=== PATIENT | female | born 1950 | race Caucasian/White ===

== ENCOUNTER 2024-12-01 06:01 | Day surgery (SDC) | payer MEDICARE, SELFPAY ==
[2024-12-01] VITALS (8 sets, daily range): BP systolic 110–142; BP diastolic 73–109; PULSE 61–79; RESP 16; TEMP 36.3–36.4; O2SAT 90–98; BMI 33.8
--- OUTSIDE RECORDS SUMMARY | 2024-12-01 06:06 | XMS_ITS | Clinical Summary ---
Author Organization [facility] Address [place], [place] [address] Care Team Providers Care Engineering Equipment Operator Name Role Phone Xiomy Gaitan MD Primary Care Provide r Allergies No known active allergies Medications latanoprost (XALATAN) 0.005 % ophthalmic solution Place 1 Drop into right eye once daily in the evening. 3 Active losartan (COZAAR) 50 mg tabletIndications:H TN (hypertension) Take 1 Tablet (50 mg) by mouth once daily. 90 Tablet 3 4 Active hydroCHLOROthiazide 25 mg tabletIndications:H TN (hypertension) Take 1 Tablet (25 mg) by mouth once daily. 90 Tablet 3 4 Active atorvastatin (LIPITOR) 10 mg tabletIndications:H yperlipidemia, unspecified hyperlipidemia type Take 1 Tablet (10 mg) by mouth at bedtime. 90 Tablet 3 4 Active Active Problems Problem Noted Date Diagnosed Date Polyp of colon 04/24/2022 Age-related cataract of both eyes 12/09/2020 Hyperlipidemia 08/28/2015 HTN (hypertension) 01/25/2012 Vitamin D deficiency 01/25/2012 Resolved Problems Problem Noted Date Diagnosed Date Resolved Date Controlled type 2 diabetes m ellitus without complication, without long-term current use of insulin 01/25/2018 12/09/2020 Encounters Date Type Department Care Team Description 11/29/2024 Travel 11/26/2024 Travel 11/25/2024 2:40 PM AIR HOSE COUPLER Office Visit [facility] [address] [place] [address] Xiomy Gaitan MD Pre-Op Exam (Bunionectomy right foot, Dr. Ritchie 12/01/24) 11/25/2024 Travel 11/22/2024 Travel 10/31/2024 Telephone [facility] [address] [place] [address] Cerscencio Ritchie, DPM Surgery Scheduled 09/19/2024 10:40 AM AIR HOSE COUPLER Ancillary Procedure [facility] [address] [facility] [address] [place] [address] 09/18/2024 Travel from Last 3 Months Immunizations Name Administration Dates Next Due COVID-19 VACCINE SPIKEVAX (M ODERNA 50MCG/0.5ML) 12YO+ PFS 07/09/2023 COVID-19 vaccine (Moderna 10 0mcg/0.5mL) PF, MDV 11/19/2020 Influenza, Inactivated AIIV4 (Age 65+ Years) Preserv Free 07/09/2023,07/21/2022,08/25/2021 Influenza, Inactivated IIV3 (Age 65+ Years) Preserv Free 08/08/2024 Pneumococcal Conj 20-valent (Prevnar 20) 023 Tdap 06/26/2014 Zoster (Shingrix-RZV, recombinant) 09/15/2024, Family History Medical History Relation Name Comments Cancer Brother 3 Liver Heart Disease Father Mid -50s Cancer-breast No Family History Cancer-ovarian No Family History Relation Name Status Comments Brother 1 Alec Alive Brother 2 Arturo Alive Brother 3 Daughter Amie Alive Father (Age 88) Mother Jada Cruz Alive Sister Pooja Alive Son Alec Alive Social History Tobacco Use Types Packs/Day Years Used Date Smoking Tobacco: Never Passive Smoke Exposure: Never Smokeless Tobacco: Never Tobacco Cessation:Counseling Given: Not Answered Alcohol Use Standard Drinks/Week Comments Yes 3 (1 standard drink = 0.6 oz pur e alcohol) PHQ-2 Answer Date Recorded PHQ-2 TOTAL SCORE 0 06/10/2024 Social Connections Answer Date Recorded Do you often feel lonely or isolated from those around you? 0 06/09/2024 Financial Resource Strain Answer Date R ecorded Difficulty of Paying Living Expenses 3 06/09/2024 Difficulty of Paying Living Expenses Not on file 06/09/2024 Food Insecurity Answer Date Recorded Do you worry your food will run out before you are able to buy more? 1 06/09/2024 Transportation Needs Answer Date Record ed Does lack of transportation keep you from medica l appointments? 1 06/09/2024 Does lack of transportation keep you from work, meetings or getting things that you need? 1 06/09/2024 Housing Stability Answer Date Recorded What is your housing situation today? 1 06/09/2024 Utilities Answer Date Recorded Do you have trouble paying f or utilities (for example, heat, electricity, water, phone)? 1 06/09/2024 Comments No Sex and Gender Information Value Date Recorded Sex Assigned at Not on file Legal Sex Female 6:09 AM AIR HOSE COUPLER Gender Identity Not on file Sexual Orientation Not on file Occupation Industry Job Start Date Job End Date Not on file Not on file Not on file Not on file Travel History Travel Start Travel [place] 11/12/2024 11/21/2024 Obstetrics History Para Term AB IAB SAB Ectopic Multiple Livin g Live Births 2 2 2 2 Date Outcome GA Total Labor Labor/2nd/3rd Weight Sex Type Anes PTL Zamzam A1 A5 Name Clin Term Term Last Filed Vital Signs Vital Sign Reading Time Taken Comments Blood Pressure 122/82 11/25/2024 3:18 PM AIR HOSE COUPLER Pulse 82 11/25/2024 3:18 PM AIR HOSE COUPLER Temperature 36.8 C (98.3 F) 08/21/2023 2:43 PM AIR HOSE COUPLER Respiratory Rate 18 08/21/2023 2:43 PM AIR HOSE COUPLER Oxygen Saturation 96% 11/25/2024 3:13 PM AIR HOSE COUPLER Inhaled Oxygen Concentration - - Weight 83.5 kg (184 lb) 11/25/2024 3:13 PM AIR HOSE COUPLER Height 157.5 cm (5' 2) 06/10/2024 9:18 AM CDT Body Mass Index 33.65 06/10/2024 9:18 AM CDT Plan of Treatment Upcoming Encounters Date Type Department Care Team (Late st Contact Info) Description 12/01/2024 9:00 AM AIR HOSE COUPLER Office Visit [facility] [address] [place] [address] Crescencio Ritchie DPM [address] [place] [address] 12/03/2024 10:45 AM AIR HOSE COUPLER Office Visit [facility] [address] [place] [address] Crescencio Ritchie DPM [address] [place] [address] 12/16/2024 1:30 PM AIR HOSE COUPLER Office Visit [facility] [address] [place] [address] Crescencio Ritchie DPM [address] [place] [address] 01/13/2025 2:30 PM CDT Office Visit [facility] [address] [place] [address] Crescencio Ritchie DPM [address] [place] [address] Health Maintenance Due Date Last Done Comments RSV vaccine for adults or (1 - Risk 60-74 years 1-dose series) 2011 Tetanus booster 06/26/2024 06/26/2014 BMI (ht and wt on same day) for age 18+ 06/10/2025 06/10/2024, 08/21/2023, 03/20/2023, Additional history exists Depression screening for age 12+ 06/10/2025 06/10/2024, 03/22/2023, 03/20/2023, Additional history exists Medicare Wellness for age 65+ 06/11/2025, 03/20/2023, 01/19/2022, Additional history exists Mammogram for age 45-75 09/19/2025 09/19/20 24, 08/17/2022, 07/21/2021, Additional history exists Lipids for age 45-75 06/10/2029 06/10/2024, 03/20/2023, 01/19/2022, Additional history exists Colonoscopy through age 75 04/24/2032 04/24/2022 Tdap Completed 06/26/2014 Hepatitis C screening for ag e 18-79 Completed 04/26/2020 DEXA/DXA scan for age 65+ Completed 02/09/2022 Pneumococcal series for age 50+ Completed COVID-19 vaccine series Completed 08/08/20, 07/09/2023, 07/21/2022, Additional history exists Influenza for age 65+ Completed 08/08/2024 , 07/09/2023, 07/21/2022, Additional history exists Zoster (shingles) series for age 50+ Completed 09/15/2024, 05/30/2024 Procedures Procedure Name Priority Date/Time Associated Diagnosis Comments BASIC METABOLIC PANEL Routine 11/25/2024 4:14 PM AIR HOSE COUPLER HTN (hypertension) CBC WITH AUTO DIFFERENTIAL Routine 11/25/2024 4:14 PM AIR HOSE COUPLER Preoperative examination XR MAMMO FACUNDO BILAT SCREEN Routine 09/19/2024 10:50 AM AIR HOSE COUPLER Visit for screening mammogram LIPID PANEL W REFLEX MEASURED LDL Routine 06/10/2024 10:15 AM CDT Hyperlipidemia, unspecified hyperlipidemia type SCAN-COLONOSCOPY 04/24/2022 10:0 0 AM CDT XR DXA BONE DENSITY 2 SITES AXIAL Routine 02/09/2022 1:44 PM CDT Menopause ANTI HCV Routine 04/26/2020 9:07 AM CDT Encounter for hepatitis C screening test for low risk patient from Last 3 Months or Most Recently Relevant to Health Maintenance Results * (ABNORMAL) CBC AND DIFFERENTIAL (11/25/2024 4:14 PM AIR HOSE COUPLER) WHITE BLOOD CELL COUNT 10.8 3.8 - 10.8 Thousand/u L [facility] RED BLOOD CELL COUNT 5.05 3.80 - 5.10 Million/uL [facility] HEMOGLOBIN 15.1 11.7 - 15.5 g/dL [facility] HEMATOCRIT 45.6(H) 35.0 - 45.0 % [facility] MCV 90.3 80.0 - 100.0 fL [facility] MCH 29.9 27.0 - 33.0 pg [facility] MCHC 33.1 32.0 - 36.0 g/dL [facility] Comment: For adults, a slight decrease in the calculated MCHC value (in the range of 30 to 32 g/dL) is most likely not clinically significant; however, it should be interpreted with caution in correlation with other red cell parameters and the patient's clinical condition. RDW 14.0 11.0 - 15.0 % [facility] PLATELET COUNT 380 140 - 400 Thousand/u L [facility] MPV 9.8 7.5 - 12.5 fL [facility] ABSOLUTE NEUTROPHILS 4,547 1,500 - 7,800 cells/uL [facility] ABSOLUTE LYMPHOCYTES 4,741(H) 850 - 3,900 cells/uL [facility] ABSOLUTE MONOCYTES 778 200 - 950 cells/uL [facility] ABSOLUTE EOSINOPHILS 594(H) 15 - 500 cells/uL [facility] ABSOLUTE BASOPHILS 140 0 - 200 cells/uL [facility] NEUTROPHILS 42.1 % [facility] LYMPHOCYTES 43.9 % [facility] MONOCYTES 7.2 % [facility] EOSINOPHILS 5.5 % [facility] BASOPHILS 1.3 % [facility] Blood BLOOD SPECIMEN / Unknown 11/25/2024 4:14 PM AIR HOSE COUPLER 11/25/2024 4:14 PM AIR HOSE COUPLER us Xiomy Gaitan MD HEMATOLOGY Final Result Performing Organization Address City/[facility]/ZIP Co de Phone Number [employer] [facility] [address] [place] [address], [place] [phone] [facility] [address] [place] [place] [address] * (ABNORMAL) BASIC METABOLIC PANEL (11/25/2024 4:14 PM AIR HOSE COUPLER) GLUCOSE 92 65 - 99 mg/dL [facility] Comment: Fasting reference interval UREA NITROGEN (BUN) 17 7 - 25 mg/dL [facility] CREATININE 0.83 0.60 - 1.00 mg/dL [facility] EGFR 74 > OR = 60 mL/min/1. 73m2 [facility] BUN/CREATININE RATIO SEE NOTE: 6 - 22 (calc) [facility] Comment: Not Reported: BUN and Creatinine are within reference range. SODIUM 139 135 - 146 mmol/L [facility] POTASSIUM 4.1 3.5 - 5.3 mmol/L [facility] CHLORIDE 102 98 - 110 mmol/L [facility] CARBON DIOXIDE 31 20 - 32 mmol/L [facility] ELECTROLYTE BALANCE 6(L) 7 - 17 mmol/L (calc) [facility] CALCIUM 10.5(H) 8.6 - 10.4 mg/dL [facility] Blood BLOOD SPECIMEN / Unknown 11/25/2024 4:14 PM AIR HOSE COUPLER 11/25/2024 4:14 PM AIR HOSE COUPLER Xiomy Gaitan MD CHEMISTRY Final Result Performing Organization Address City/[facility]/ZIP Co de Phone Number [employer] [facility] [address] [facility] [place] [address], [place] [phone] [facility] [address] [place] [address] * XR MAMMO FACUNDO BILAT SCREEN (09/19/2024 10:50 AM AIR HOSE COUPLER) Anatomical Region Laterality Modality BREASTS, Breast Left, Breast Right Bilateral Mammography Impressions 09/19/2024 1:03 PM AIR HOSE COUPLER There is no radiographic evidence for malignancy. Recommend annual mammograms. MAMMOGRAM ASSESSMENT: ACR 1 Negative PATIENTS: You will also receive a letter with your examination results in an easy to read format. If you have questions about your results, please contact your referring provider. Narrative 09/19/2024 1:03 PM AIR HOSE COUPLER For Patients: As a result of the Century Cures Act, medical imaging exams and procedure reports are released immediately into your electronic medical record. You may view this report before your referring provider. If you have questions, please contact your health care provider. XR MAMMO FACUNDO BILAT SCREEN [[id number]] CLINICAL HISTORY: This is an asymptomatic 73 y.o. patient. INDICATION FOR EXAM: Mammogram Screening. TECHNIQUE: CC & MLO views were obtained. This study was evaluated with the assistance of Computer-Aided Detection. Breast Tomosynthesis was used in interpretation. COMPARISON FILM: Yes 08/17/22 [employer] 07/21/21 [employer] FINDINGS: There are scattered areas of fibroglandular density. There are no dominant masses, suspicious micro calcifications or areas of architectural distortion. us Xiomy Gaitan MD MAMMO Final Result * (ABNORMAL) LIPID PANEL W REFLEX MEASURED LDL (06/10/2024 10:15 AM CDT) CHOLESTEROL,TOTAL 205(H) 100 - 199 mg/dL 06/10/2024 7:15 PM T [facility] Comment: Cholesterol, Total Reference Ranges Desirable <200 mg/dL Borderline 200-239 mg/dL High >=240 mg/dL TRIGLYCERIDES 295(H) <150 mg/dL 06/10/2024 7:15 PM CDT [facility] HDL CHOLESTEROL 48 >40 mg/dL 7:15 PM CDT [facility] NON-HDL CHOLESTEROL 157(H) <145 mg/dl 06/10/2024 7:15 PM T [facility] CHOL/HDL RATIO 4.27 <4.50 06/10/2024 7:15 PM CDT [facility] LDL CHOLESTEROL 98 <=130 mg/dL 06/10/2024 7:15 PM CDT [facility] VLDL CHOLESTEROL 59(H) <=30 mg/dL 06/10/2024 7:15 PM CDT [facility] PROVIDER ORDERED STATUS RANDOM 06/10/2024 7:15 PM CDT [facility] Blood BLOOD SPECIMEN / Unknown Venipuncture / Unknown 06/10/2024 10:15 AM CDT 06/10/2024 10:15 AM CDT us Xiomy Gaitan MD CHEMISTRY Final Result [facility] [address] [place] [address], [place] * SCAN-COLONOSCOPY (04/24/2022 10:00 AM CDT) Narrative Procedure Note Juanito Black MD - 04/24/2022 9:09 AM CDT [facility] [address], [address], [place] [address] Patient Name: Raiza Rebolledo Gender: Female Exam Date: 04/24/2022 Visit Number: [id number] Age: 71 Years Date of : 1950 Attending MD: Juanito Black MD Medical Record#: [id number] Procedure: Colonoscopy Indications: Colorectal cancer screening Referring MD: Xiomy Gaitan MD Primary MD: Xiomy Gaitan MD Medications: Intra Procedure Medications: Patient received monitored anesthesia care. Complications: No immediate complications Procedure: An examination of the heart and lungs was performed and found to be withinacceptable limits. . The patient was therefore deemed a reasonablecandidate for endoscopy and sedation. The risks and benefits of the procedure were explained to the patient.After obtaining informed consent, the patient received monitoredanesthesia care and I passed the scope without difficulty via the rectum to the cecum. The appendiceal orificeand ic valve were identified. The scope was retroflexed during theexamination The quality of the prep was excellent (). This was a complete examination throughout the entire colon. Findings: Polyp location: sigmoid. Quantity: 1. Size: 3 mm. Polyp shape: flatlesion. Maneuver: polypectomy was performed with a cold biopsy forceps. Removal: complete. Retrieval: complete. Bleeding:minimal/oozing. Remainder of the exam is normal. Impression: Colorectal polyp detected on colonoscopy Preliminary Plan: The patient and their physician will receive a copy of the pathologyreport as well as pathology-based recommendations for future screening orsurveillance. Return to your primary care provider as needed. Pathology Results: A: COLON, SIGMOID, POLYP: 1. Hyperplastic polyp MICROSCOPIC A: Performed Electronically signed by: Jayjay Guzmán [place] [address] Final Plan: Repeat colonoscopy not indicated at this time. We will attempt to contact you at appropriate intervals via U.S. mail. Wemay not be able to find you or contact you at that time, therefore youshould know that the responsibility for following our recommendation restswith you. If you don't hear from us at the time your procedure is due,please contact our office to schedule an appointment. If your contactinformation should change, please contact our office so that we can updateyour record. Additional Comments: Raiza, since you have never had an adenomatous or precancerous polyp,the guidelines recommend that you do not need a repeat colonoscopy forcolon cancer screening, as we typically stop screening in this setting atage 75 and you next exam would usually be in 10 years or age 80. _Electronically signed by: Juanito Black MD 04/24/2022 cc: Xiomy Gaitan MD cc: Xiomy Gaitan MD us Juanito Black MD OTHER Final Resu lt * (ABNORMAL) XR DXA BONE DENSITY 2 SITES AXIAL [14760.1] (02/09/2022 1:44 PM CDT) Anatomical Region Laterality Modality Spine, HIPS, HIPL, HIPR Other Impressions 02/13/2022 8:15 AM CDT Osteopenia. RECOMMENDATIONS: The National Osteoporosis Foundation recommends pharmacologic treatment for patients with T-scores of -2.5 or less, patients with prior history of fragility fractures, or patients with 10-year probability of greater than 3% at hips or greater than 20% of suffering major osteoporotic fractures. Recommend continued optimization of calcium and vitamin D intake through dietary means and/or supplementation and regular exercise. Repeat scan recommended in 3-5 years. Tori Gonzales PA-C [facility] 02/13/2022 Narrative 02/13/2022 8:15 AM CDT For Patients: Results are automatically released to your [facility] [employer] account once available, in compliance with federal regulations. This means that you may see your results before your provider has had a chance to review them. Please allow 2-3 business days for your provider to comment on the results. XR DXA Bone Mineral Density (BMD) EXAM LOCATION: [facility] [address] [facility] [address] PATIENT NAME: Raiaz Rebolledo DATE OF : 1950 EXAM DATE: 02/09/2022 REQUESTING PROVIDER: Xiomy Gaitan MD GENDER AT : female HEIGHT: 5' 2.25 (01/19/2022) WEIGHT: 168 lb (02/06/2022) MENOPAUSAL STATUS: Postmenopausal RACE/ETHNICITY: White RISK FACTORS: White Race CURRENT MEDICATION FOR BONE LOSS: NONE INDICATION: Menopause COMPARISON DATE(S): None DXA scans are compared to prior studies for a patient only when the two (or more) studies were performed on the same scanner. It is not possible to compare data generated on one scanner to data from another because there are not standards in DXA equipment. This applies even if the two scanners are made by the same friend of the court. PROCEDURE: Dual-energy x-ray absorptiometry performed with routine technique. Reporting is completed in the form of a T-score. The T-score represents the standard deviation from peak bone mass based on young healthy adult. A Z-score is used for diagnosis in premenopausal women, and for men under the age of 50. FINDINGS: RESULT LUMBAR SPINE L1 - L4 BMD: 1.306 g/cm2 T-Score: + 0.9 Z-Score: + 2.2 Change from prior: None Right femoral neck BMD: 0.813 g/cm2 T-Score: - 1.6 Z-Score: - 0.2 Change from prior: None Right hip BMD: 1.015 g/cm2 T-Score: + 0.1 Z-Score: + 1.3 Change from prior: None WHO criteria: Normal: T-score at or above -1 SD Osteopenia: T-score between -1.1 and -2.4 SD Osteoporosis: T-score at or below -2.5 SD FRAX RISK CALCULATION (USED FOR OSTEOPENIA ONLY): 10-year probability of major osteoporotic fracture: 10.0%. 10-year probability of hip fracture: 1.6%. Xiomy Gaitan MD DEXA Final Result * ANTI HCV (04/26/2020 9:07 AM CDT) Pathologist [facility] HEPATITIS C ANTIBODY Non-React marli Non-React marli 04/26/2020 4:57 PM CDT [facility] Comment:Antibodies to HCV no t detected; does not exclude the possibility of exposure to HCV. Blood BLOOD SPECIMEN / Unknown Venipuncture / Unknown 04/26/2020 9:07 AM CDT 04/26/2020 9:07 AM CDT Xiomy Gaitan MD SEND OUTS Final Result [facility] [address] [place] [address], [place] from Last 3 Months or Most Recently Relevant to Health Maintenance Insurance [facility] MEDICARE ADVANTAGE MR Care Teams Engineering Equipment Operator Relationship Specialty Start Date End Date Xiomy Gaitan MD [address] [place] [address] PCP - General Family Practice 11/11/10
[2024-12-01] MEDS: LACTATED RINGERS 1000 ML 1,000 ML 100 ML IV (06:56)
[2024-12-01] MEDS: SODIUM CHLORIDE 0.9 % (FLUSH) 10 ML SYRINGE IVF (06:56)
--- NOTE | 2024-12-01 07:15 | CRLHL7_ITS ---
For Patients: As a result of the Century Cures Act, medical imaging exams and procedure reports are released immediately into your electronic medical record. You may view this report before your referring provider. If you have questions, please contact your health care provider. Indication: Right bunionectomy. Technique: Right foot 2 views, intra op. Comparison: None. Findings/Impression: Intraoperative fluoroscopic images of right forefoot demonstrates acute postoperative changes of bunionectomy with screw and nail fixation of 1st metatarsal. Total fluoroscopic accumulated dose is 0.38 mGy. Dictated by Liset Welch MD @ 12/01/2024 10:40:15 AM (Electronically Signed)
[2024-12-01] MEDS: CEFAZOLIN 2 GM INJ IVP (07:29)
[2024-12-01] MEDS: BUPIVACAINE 0.25% 30 ML INJECTION (07:30)
--- NOTE | 2024-12-01 08:49 | P.ANES_ITS ---
Anesthesia Charges Start Date/Time Anesthesia Start Date: 12/01/24 Anesthesia Start Time: 07:15 Stop Date/Time Anesthesia Stop Date: 12/01/24 Anesthesia Stop Time: 08:47 Summary Extremes of Age - Over 70 or under 1: FINANCIAL SERVICES OFFICER Coding CPT Codes CPT Codes: ANESTH LOWER LEG BONE SURG - 29270 ([id number]) P2 - PATIENT W/MILD SYST DISEASE, QZ - FINANCIAL SERVICES OFFICER SVC W/O HEEL ATTACHER BY Additional Codes: Summary - Extremes of Age - Over 70 or under 1: FINANCIAL SERVICES OFFICER ([id number])
--- NOTE | 2024-12-01 08:49 | W.ANESCHARGE ---
Anesthesia Charges Start Date/Time Anesthesia Start Date: 12/01/24 Anesthesia Start Time: 07:15 Stop Date/Time Anesthesia Stop Date: 12/01/24 Anesthesia Stop Time: 08:47 Summary Extremes of Age - Over 70 or under 1: LOG BUNCHER Coding CPT Codes CPT Codes: ANESTH LOWER LEG BONE SURG - 19627 ([id number]) P2 - PATIENT W/MILD SYST DISEASE, QZ - LOG BUNCHER SVC W/O OPERATIONS MANAGER BY Additional Codes: Summary - Extremes of Age - Over 70 or under 1: LOG BUNCHER ([id number])
--- NOTE | 2024-12-01 13:21 | W.PM.PODPROC ---
Date of Procedure: 12/01/24 Surgeon: Crescencio Ritchie DPM Pre-op Diagnosis: Hallux valgus with bunion right Post-op Diagnosis: Hallux valgus with bunion right Type of Procedure: Bunionectomy by distal metatarsal osteotomy right Indications: Patient has had long standing painful bunion. She wishes to proceed with surgical correction. I reviewed the procedure, recovery, expectation potential complications. These include but not limited to: Poor wound healing, wound infection, under correction, over correction, nonunion, malunion, delayed union, hardware irritation, nerve injury, potential need for future surgery, deep venous thrombosis, pulmonary embolism and possible . She understands risks and written consent was obtained. Site marked. Procedure Description: The patient was brought in the OR and placed in the supine position on the operating table. IV sedation was initiated local anesthetic injected into the right foot. She was prepped and draped in normal aseptic manner. Standard time-out procedure followed. Right foot was exsanguinated the tourniquet inflated. Dorsomedial curvilinear incision made over the 1st metatarsophalangeal joint. The incision was carried down through skin subcutaneous tissues. T-shaped capsular incision was made through the 1st MPJ. Enlarged medial bony prominence was resected. Blunt dissection carried down to the 1st intermetatarsal space and standard lateral release was performed. Guide pin was placed in the 1st metatarsal head and the long plantar arm osteotomy was performed. Capital fragment was transposed laterally and temporarily fixated. C-arm confirmed correction. Osteotomy was fixated with a 4.0 mm cancellous screw and a 0.045 smooth K-wire x1. First metatarsal head was remodeled with a rotary bur and sagittal saw. Wound was irrigated with normal sterile saline. Redundant capsular tissue was excised and the medial capsule repaired with 3-0 Vicryl. Subcutaneous tissues reapproximated 4-0 Monocryl skin closed with 4-0 Prolene. Sterile dressing was applied and tourniquet was released. Normal capillary fill time returned all digits. She was transferred from OR to PACU vital signs stable vascular status intact to the right foot. She will be discharged per same-day surgery protocol. She is given both written and verbal postoperative instructions. She is weight-bearing as tolerated with crutch or cane assistance. Was given oxycodone for pain. She will follow up in clinic in 3 days. Anesthesia: MAC and local Hemostasis: ankle Estimated blood loss (mL): 2 Implants: [place] 4.0 mm Fixos screw x1, 0.045 smooth K-wire x1 Specimens: none sent Disposition: same day
== END 2024-12-01 10:42 | disposition home or self-care (01) ==
LOC: OR 06:04
PROVIDERS: PCP Family Medicine; Visit Provider Podiatrist
PROC: (CPT 28292; principal; 2024-12-01 07:15)
DX: M20.11 Hallux valgus (acquired), right foot (principal); M21.611 Bunion of right foot
CPT/HCPCS: 28296; 01480; 73620; 76000; 99100; C1713; J0665; J0690; J1100; J2250; J2371; J2405; J2704; J3010; J7120